=== PATIENT | female | born 1930 | race Caucasian/White ===

== ENCOUNTER 2017-04-28 14:48 | Inpatient (IN) | payer MEDICARE, OTHER ==
[~2017-04-28 14:48] MED LIST: Sodium Chloride 0.9% 1,000 ML BAG ONE
[2017-04-28] MEDS ORDERED: Fentanyl 100 MCG/2 ML VIAL ONE (15:35)
[2017-04-28 15:36] LABS: Clarity Clear (Clear); Glucose, Urine (Dipstick) Negative (Negative); Leukocyte Negative (Negative); Nitrite Negative (Negative); Protein, Urine (Dipstick) 30 mg/dL (Neg-Trace)
[2017-04-28 15:37] LABS: Bacteria/HPF None Seen HPF (None Seen); Bilirubin Negative (Negative); Blood, Urine Negative (Negative); RBC/HPF 0-3 HPF (0-3); Squamous Epithelial 0-3 HPF (0-3); WBC/HPF 0-3 HPF (0-3)
[2017-04-28 15:38] LABS: Hyaline Casts/LPF 7-10 HYALINE CAST LPF (0-3 Hyaline)
[2017-04-28 15:39] LABS: #Basophils 0.1 thou/uL (0.0-0.2); #Monocytes 0.8 thou/uL (0.11-0.59); #Neutrophils 10.9 thou/uL (1.40-6.50); %Basophils 0.4 % (0.0-1.0); %Eosinophils 0.2 % (0.0-10.0); %Lymphocytes 14.3 % (21.0-51.0); %Monocytes 5.8 % (0.0-10.0); %Neutrophils 79.3 % (42.0-75.0); Hemoglobin 13.9 g/dL (12.0-16.0); Mean Corpuscular HGB CONC 32.6 g/dL (32.0-36.0); Mean Corpuscular Hemoglobin 32.1 pg (27.0-31.0); Mean Corpuscular Volume 98.4 fl (81.0-99.0); Mean Platelet Volume 7.5 fL (7.4-10.4); Platelet Count 261 thou/uL (130-400); Red Blood Cell (RBC) Count 4.33 mill/uL (4.20-5.40); White Blood Cell (WBC) Count 13.7 thou/uL (4.8-10.8)
[2017-04-28 16:00] LABS: ALT (SGPT) 25 U/L (8-55); AST (SGOT) 24 U/L (5-34); Albumin 4.3 g/dL (3.4-4.8); Alkaline Phosphatase 84 U/L (40-150); Anion Gap 18 mmol/L (10-20); BUN (Urea Nitrogen) 16 mg/dL (9.8-20.1); Bilirubin, Total 0.6 mg/dL (0.2-1.2); Calc. Creatinine Clearance 0 mL/min (70-130); Calcium 9.7 mg/dL (7.8-10.44); Carbon Dioxide 20 mmol/L (23-31); Chloride 109 mmol/L (98-107); Estimated GFR-MDRD 65; Globulin 3.3 g/dL (2.4-3.5); Glucose 90 mg/dL (83-110); Lipase 25 U/L (8-78); Potassium 4.9 mmol/L (3.5-5.1); Protein, Total 7.6 g/dL (6.0-8.3); Sodium 142 mmol/L (136-145)
[2017-04-28 16:02] LABS: CKMB 1.3 ng/mL (0-6.6); Troponin I 0.014 ng/mL (< 0.028)
--- NOTE | 2017-04-28 16:24 | CT ---
CT ABDOMEN AND PELVIS WITHOUT IV CONTRAST 04/28/17 HISTORY: Nausea, vomiting, and diarrhea for two days. FINDINGS: There is focal area of thickening seen within the junction of the descending colon and sigmoid colon with multiple colonic diverticula seen within the descending and sigmoid colon. There is pericoloni c inflammatory changes in the region of bowel wall thickening. The findings are likely attributable to diverticulitis. There is no fluid collection to suggest abscess. No free intraperitoneal gas is s een. Followup to complete resolution is recommended to exclude neoplastic process in this region, bu t there is only focal short segment area of thickening. There is a small pericardial effusion. There is a moderate sized hiatal hernia with the fundus and proximal body of the stomach above the h emidiaphragms. There is a 2.5 cm low density lesion in the inferior pole left kidney demonstrating attenuation coef ficient most consistent with a cyst. There is suggestion of a few very small parapelvic bilateral re nal cysts. No renal or ureteral calculi are seen, and there is no hydronephrosis. There is dependent bibasilar atelectasis. There is a 2.8 cm low density lesion seen in the superior pole of the spleen which also demonstrates fluid attenuation and may represent a splenic cyst. The liver, pancreas, bilateral adrenal glands, urinary bladder, and ureters demonstrate a normal CT appearance. There is a bilobed cystic appearing structure involving the left ovary measuring 4.9 cm x 2.2 cm. Th is may represent two separate closely adjacent cysts versus a lobulated cystic lesion. There are sma ll cystic structures also seen involving the right ovary, largest measuring 2.4 cm. Vascular calcifications are seen in the abdominal aorta and involving the iliac arteries. Postsurgical changes are see in the midline infraumbilical region. There is a small fat containing u mbilical hernia. Degenerative changes are noted in the spine. There is a wedge shaped compression fracture of the T11 vertebral body of which the exact age is indeterminate based on this exam. IMPRESSION: 1. Evidence for diverticulitis involving the junction of the distal descending colon and sigmoi d colon. Followup to resolution is recommended to ensure resolution of the focal bowel wall thickeni ng in this region. 2. Cystic lesions bilateral ovaries. Followup pelvic ultrasound is suggested. 3. Small pericardial effusion. 4. Hiatal hernia. 5. Bilateral parapelvic renal cysts with inferior pole left renal cortical cyst. POS: [facility]
[2017-04-28] MEDS ORDERED: Ciprofloxacin Lactate/D5W 400 mg/200 ml Premix ONE (17:09)
[2017-04-28] MEDS ORDERED: metroNIDAZOLE 500 MG/100 ML BAG ONE (17:09)
[2017-04-28] MEDS ORDERED: Acetaminophen 325 MG TAB PO PRN ×2 (18:11→18:49)
[2017-04-28] MEDS ORDERED: Ondansetron HCl/PF 4 MG/2 ML Vial SLOW IVP PRN (18:11)
[2017-04-28 18:45] VITALS: BMI 25.2
[2017-04-28] MEDS: Dextrose 5 % And 0.9 % NaCl 1,000 ML IV SCH (19:53)
[2017-04-28] MEDS: Acetaminophen 325 MG TAB PO SCH (20:12)
[2017-04-29] MEDS: metroNIDAZOLE 500 MG in Premix Bag 1 BAG IVPB SCH ×3 (00:01→16:29)
[2017-04-29 05:46] LABS: Anion Gap 11 mmol/L (10-20); BUN (Urea Nitrogen) 10 mg/dL (9.8-20.1); Calc. Creatinine Clearance 57 mL/min (70-130); Calcium 8.7 mg/dL (7.8-10.44); Carbon Dioxide 20 mmol/L (23-31); Chloride 114 mmol/L (98-107); Estimated GFR-MDRD 82; Glucose 96 mg/dL (83-110); Potassium 3.9 mmol/L (3.5-5.1); Sodium 141 mmol/L (136-145)
[2017-04-29 05:54] LABS: #Eosinphils 0.1 thou/uL (0.0-0.7); #Lymphocytes 1.9 thou/uL (1.20-3.40); #Monocytes 0.5 thou/uL (0.11-0.59); #Neutrophils 3.5 thou/uL (1.40-6.50); %Basophils 0.7 % (0.0-1.0); %Lymphocytes 32.2 % (21.0-51.0); %Monocytes 8.3 % (0.0-10.0); %Neutrophils 57.8 % (42.0-75.0); Mean Corpuscular HGB CONC 33.7 g/dL (32.0-36.0); Mean Corpuscular Hemoglobin 32.6 pg (27.0-31.0); Mean Corpuscular Volume 96.6 fl (81.0-99.0); Mean Platelet Volume 7.2 fL (7.4-10.4); Platelet Count 167 thou/uL (130-400); Red Blood Cell (RBC) Count 3.38 mill/uL (4.20-5.40)
[2017-04-29] MEDS: Acetaminophen 325 MG TAB PO SCH ×3 (08:47→16:26)
[2017-04-29] MEDS: Lorazepam 1 MG TAB PO SCH ×2 (08:47→14:38)
[2017-04-29] MEDS ORDERED: Lorazepam 1 MG TAB PO SCH (09:00)
[2017-04-29] MEDS ORDERED: Losartan Potassium 25 MG TAB PO SCH (09:00)
[2017-04-29] MEDS ORDERED: Escitalopram Oxalate 10 mg Tablet PO SCH (09:00)
[2017-04-29] MEDS ORDERED: Acetaminophen 325 MG TAB PO SCH (09:00)
[2017-04-29] MEDS ORDERED: Acetaminophen 325 MG TAB PO PRN (09:27)
[2017-04-29] MEDS: Losartan Potassium 25 MG TAB PO SCH (10:53)
[2017-04-29] MEDS: Dextrose 5 % And 0.9 % NaCl 1,000 ML IV SCH ×2 (10:53→16:40)
[2017-04-29] MEDS: Divalproex Sodium 125 mg Sprinkle Capsule PO SCH (16:27)
[2017-04-29] MEDS: Escitalopram Oxalate 10 mg Tablet PO SCH (16:29)
[2017-04-29] MEDS ORDERED: Sodium Chloride 0.9% 10 ML ONE (17:47)
[2017-04-30 06:04] LABS: Anion Gap 10 mmol/L (10-20); BUN (Urea Nitrogen) 5 mg/dL (9.8-20.1); Calc. Creatinine Clearance 57 mL/min (70-130); Calcium 8.5 mg/dL (7.8-10.44); Carbon Dioxide 21 mmol/L (23-31); Chloride 117 mmol/L (98-107); Estimated GFR-MDRD 82; Glucose 112 mg/dL (83-110); Potassium 3.5 mmol/L (3.5-5.1); Sodium 144 mmol/L (136-145)
[2017-04-30 06:08] LABS: #Eosinphils 0.1 thou/uL (0.0-0.7); #Lymphocytes 1.5 thou/uL (1.20-3.40); #Monocytes 0.4 thou/uL (0.11-0.59); #Neutrophils 2.1 thou/uL (1.40-6.50); %Basophils 0.6 % (0.0-1.0); %Eosinophils 1.6 % (0.0-10.0); %Lymphocytes 37.5 % (21.0-51.0); %Monocytes 9.3 % (0.0-10.0); %Neutrophils 50.9 % (42.0-75.0); Anisocytosis SLIGHT = 6-15 cells (100X) (0-5/hpf); Hemoglobin 10.3 g/dL (12.0-16.0); Hypochromia SLIGHT = 6-15 cells (100X) (0-5/hpf); MDiff Complete? YES; Mean Corpuscular HGB CONC 35.5 g/dL (32.0-36.0); Mean Corpuscular Hemoglobin 34.2 pg (27.0-31.0); Mean Corpuscular Volume 96.6 fl (81.0-99.0); Mean Platelet Volume 7.7 fL (7.4-10.4); PLT Morphology Comment Appears Adequate; Platelet Count 150 thou/uL (130-400); RBC Distribution Width 12.3 % (11.5-14.5); Red Blood Cell (RBC) Count 3.01 mill/uL (4.20-5.40)
[2017-04-30] MEDS: Lorazepam 1 MG TAB PO SCH ×2 (08:21→13:38)
[2017-04-30] MEDS: Acetaminophen 325 MG TAB PO SCH ×3 (08:21→17:22)
[2017-04-30] MEDS: Divalproex Sodium 125 mg Sprinkle Capsule PO SCH ×2 (08:22→17:22)
[2017-04-30] MEDS: metroNIDAZOLE 500 MG in Premix Bag 1 BAG IVPB SCH ×4 (08:22→16:21)
[2017-04-30] MEDS: Losartan Potassium 25 MG TAB PO SCH (08:22)
[2017-04-30] MEDS: Dextrose 5 % And 0.9 % NaCl 1,000 ML IV SCH ×2 (10:57)
[2017-04-30] MEDS: D5 0.9% NS w/ 20 mEq KCl 1,000 ML IV SCH (11:47)
[2017-04-30] MEDS ORDERED: traMADol HCl 50 MG TAB PO PRN (13:33)
[2017-04-30] MEDS: traMADol HCl 50 MG TAB PO PRN (13:39)
[2017-04-30] MEDS: Escitalopram Oxalate 10 mg Tablet PO SCH (17:22)
[2017-05-01] MEDS: metroNIDAZOLE 500 MG in Premix Bag 1 BAG IVPB SCH ×4 (00:35→23:23)
[2017-05-01 06:12] LABS: Anion Gap 8 mmol/L (10-20); BUN (Urea Nitrogen) 4 mg/dL (9.8-20.1); Calc. Creatinine Clearance 53 mL/min (70-130); Calcium 8.6 mg/dL (7.8-10.44); Carbon Dioxide 23 mmol/L (23-31); Chloride 116 mmol/L (98-107); Estimated GFR-MDRD 76; Glucose 90 mg/dL (83-110); Sodium 143 mmol/L (136-145)
[2017-05-01 06:16] LABS: #Basophils 0.1 thou/uL (0.0-0.2); #Eosinphils 0.1 thou/uL (0.0-0.7); #Lymphocytes 1.7 thou/uL (1.20-3.40); #Monocytes 0.5 thou/uL (0.11-0.59); #Neutrophils 3.9 thou/uL (1.40-6.50); %Basophils 0.9 % (0.0-1.0); %Eosinophils 1.4 % (0.0-10.0); %Lymphocytes 26.7 % (21.0-51.0); %Monocytes 7.8 % (0.0-10.0); %Neutrophils 63.2 % (42.0-75.0); Hemoglobin 11.5 g/dL (12.0-16.0); Mean Corpuscular HGB CONC 35.4 g/dL (32.0-36.0); Mean Corpuscular Hemoglobin 34.1 pg (27.0-31.0); Mean Corpuscular Volume 96.6 fl (81.0-99.0); Mean Platelet Volume 6.7 fL (7.4-10.4); Platelet Count 185 thou/uL (130-400); RBC Distribution Width 12.5 % (11.5-14.5); Red Blood Cell (RBC) Count 3.36 mill/uL (4.20-5.40); White Blood Cell (WBC) Count 6.2 thou/uL (4.8-10.8)
[2017-05-01] MEDS: Lorazepam 1 MG TAB PO SCH ×2 (08:25→14:59)
[2017-05-01] MEDS: D5 0.9% NS w/ 20 mEq KCl 1,000 ML IV SCH (08:25)
[2017-05-01] MEDS: Divalproex Sodium 125 mg Sprinkle Capsule PO SCH ×2 (08:26→17:08)
[2017-05-01] MEDS: Acetaminophen 325 MG TAB PO SCH ×3 (08:27→17:09)
[2017-05-01] MEDS: Losartan Potassium 25 MG TAB PO SCH (08:27)
[2017-05-01] MEDS: traMADol HCl 50 MG TAB PO PRN (13:05)
[2017-05-01] MEDS ORDERED: Dextrose 5 % And 0.9 % NaCl 1000 ml Bag ONE (14:10)
[2017-05-01] MEDS ORDERED: D5 NS W ONE (14:10)
[2017-05-01] MEDS ORDERED: KCL ONE (14:10)
[2017-05-01] MEDS: Escitalopram Oxalate 10 mg Tablet PO SCH (17:08)
[2017-05-02] MEDS: Acetaminophen 325 MG TAB PO SCH (07:18)
[2017-05-02] MEDS: metroNIDAZOLE 500 MG in Premix Bag 1 BAG IVPB SCH (07:18)
[2017-05-02 08:57] VITALS: BP 145/79; TEMP 98.2
[2017-05-02] MEDS: Lorazepam 1 MG TAB PO SCH (09:26)
[2017-05-02] MEDS: Divalproex Sodium 125 mg Sprinkle Capsule PO SCH (09:27)
[2017-05-02] MEDS: Losartan Potassium 25 MG TAB PO SCH (09:27)
== END 2017-05-02 11:35 | disposition swing bed (61) | DRG 392 ==
LOC: MADERS 14:48 → UNDOADMIN 17:03 → MADMS 17:03
PROVIDERS: ADMIT Family Medicine; ATTEND Family Medicine
DX: K57.32 Diverticulitis of large intestine without perforation or abscess without bleeding (principal); G30.9 Alzheimer's disease, unspecified; F02.81 Dementia in other diseases classified elsewhere, unspecified severity, with behavioral disturbance; I10 Essential (primary) hypertension; K21.9 Gastro-esophageal reflux disease without esophagitis; Z66 Do not resuscitate; E78.00 Pure hypercholesterolemia, unspecified; Z86.718 Personal history of other venous thrombosis and embolism
CPT/HCPCS: 36415; 51701; 74176; 80048; 80053; 81001; 82553; 83605; 83690; 84484; 85025; 96361; 96374; 96375; A4216; A4353; J0744; J3010; J7042; J7050